=== PATIENT | male | born 1960 | race Caucasian/White ===

== ENCOUNTER → 2019-06-15 | Day surgery (SDC) | payer BC ==
[~2019-06-15] MED LIST: Lactated Ringers 1,000 ML IV SCH; Propofol 200 MG/20 ML SDV IV ONE
--- NOTE | 2019-06-15 12:18 | OR ---
DATE OF OPERATION: 06/15/2019 PREOPERATIVE DIAGNOSIS: 1. HISTORY OF POLYPS. 2. FAMILY HISTORY OF COLON CANCER. POSTOPERATIVE DIAGNOSIS: 1. HISTORY OF POLYPS. 2. FAMILY HISTORY OF COLON CANCER. SURGEON: Marino Marti MD PROCEDURE: FULL-LENGTH COLONOSCOPY. ANESTHESIA: MAC via THERMODYNAMICS ENGINEER. COMPLICATIONS: None. SPECIMEN: None. FINDINGS: Normal full-length colonoscopy. RECOMMENDATIONS: Followup colonoscopy every 5 years. INDICATIONS: The patient has a history of colon polyps in the past. He also has a recent diagnosis in a brother of colon cancer. It has been 5 years since his last scope. We recommended procedure. DESCRIPTION OF PROCEDURE: The patient was prepped and draped, placed in the left lateral decubitus position. The lubricated Olympus colonoscope was inserted and easily advanced to the cecum. Direct visualization of the ileocecal valve and appendiceal orifice was accomplished. The bowel prep was fine. Upon withdrawal of the scope, throughout the entire length of the colon, I could find no signs of any polyps, mass, ulceration, or bleeding sites. No vascular abnormalities or signs of colitis. There were no diverticula. No worrisome polyps or lesions seen. Rectal vault was benign. Retroflexion showed no perianal lesions. Air was suctioned, scope removed without complication. SKYLAR/VILLA /[id number]
== END ==
LOC: CC.SDS 07:55
PROVIDERS: ATTEND Family Medicine
DX: Z12.11 Encounter for screening for malignant neoplasm of colon (principal); K21.9 Gastro-esophageal reflux disease without esophagitis; E78.00 Pure hypercholesterolemia, unspecified; Z86.010 Personal history of colon polyps; Z80.0 Family history of malignant neoplasm of digestive organs; Z79.82 Long term (current) use of aspirin; Z79.899 Other long term (current) drug therapy; Z87.891 Personal history of nicotine dependence
CPT/HCPCS: G0121; J2704; J7120

== ENCOUNTER → 2022-07-02 | Day surgery (SDC) | payer BC ==
[~2022-07-02] MED LIST changes: +Ketamine 200 MG/20 ML MDV ONE; +Lidocaine 2% 20 ML MDV ONE; -Propofol 200 MG/20 ML SDV IV ONE; +Propofol 200 MG/20 ML SDV ONE; +fentaNYL 50 MCG/ML SDV ONE
== END ==
LOC: CC.SDS 10:19
PROVIDERS: ATTEND Family Medicine
DX: K31.A0 Gastric intestinal metaplasia, unspecified (principal); K20.90 Esophagitis, unspecified without bleeding; K31.7 Polyp of stomach and duodenum; K22.70 Barrett's esophagus without dysplasia; E78.5 Hyperlipidemia, unspecified; K21.9 Gastro-esophageal reflux disease without esophagitis; I48.91 Unspecified atrial fibrillation; Z79.899 Other long term (current) drug therapy; Z87.891 Personal history of nicotine dependence; Z79.82 Long term (current) use of aspirin
CPT/HCPCS: 00731; 87081; J2704; J3010; J7120

== ENCOUNTER 2024-08-31 09:08 | Day surgery (SDC) | payer BC ==
[2024-08-31] MEDS: Lactated Ringers 1,000 ML IV SCH (09:24)
[2024-08-31] MEDS ORDERED: Propofol 200 MG/20 ML SDV ONE ×2 (09:40)
[2024-08-31] MEDS ORDERED: Midazolam 1 MG/ML 2 ML SDV ONE (09:40)
[2024-08-31] MEDS ORDERED: Ketamine 200 MG/20 ML MDV ONE (09:40)
[2024-08-31] MEDS ORDERED: fentaNYL 50 MCG/ML SDV ONE ×2 (09:40)
[2024-08-31] MEDS ORDERED: ePHEDrine 50 MG/ML SDV ONE (09:40)
== END 2024-08-31 11:19 | disposition home or self-care (01) ==
LOC: CC.SDS 09:08
PROVIDERS: ATTEND Family Medicine
DX: Z12.11 Encounter for screening for malignant neoplasm of colon (principal); K22.70 Barrett's esophagus without dysplasia; K20.90 Esophagitis, unspecified without bleeding; I71.21 Aneurysm of the ascending aorta, without rupture; E78.00 Pure hypercholesterolemia, unspecified; I48.0 Paroxysmal atrial fibrillation; Z80.0 Family history of malignant neoplasm of digestive organs; Z79.82 Long term (current) use of aspirin; Z79.899 Other long term (current) drug therapy
CPT/HCPCS: 00813; 87081; J2250; J2704; J3010; J3490; J7120